=== PATIENT | female | born 1995 | race Hispanic/Latino ===

== ENCOUNTER 2017-01-16 16:56 | Outpatient (CLI) | payer OTHER ==
[~2017-01-16] VITALS: Ht 154.9 cm; Wt 64.0 kg
[2017-01-16 17:08] VITALS: BP 117/64
[2017-01-16] MEDS ORDERED: PRENTAB9 PO (17:56)
== END 2017-01-16 17:53 | disposition home or self-care (01) ==
LOC: M LDO 16:56
PROVIDERS: ATTEND Obstetrics & Gynecology
DX: O36.8130 Decreased fetal movements, third trimester, not applicable or unspecified (principal); Z3A.31 31 weeks gestation of pregnancy

== ENCOUNTER 2017-02-17 21:15 | Outpatient (CLI) | payer OTHER ==
[~2017-02-17 21:15] MED LIST: PRENTAB9 PO
== END 2017-02-17 22:30 | disposition home or self-care (01) ==
LOC: M LDO 21:15
PROVIDERS: ATTEND Obstetrics & Gynecology
DX: O47.03 False labor before 37 completed weeks of gestation, third trimester (principal); Z3A.00 Weeks of gestation of pregnancy not specified

== ENCOUNTER 2017-02-23 09:38 | Inpatient (IN) | payer OTHER ==
[2017-02-23] VITALS (32 sets, daily range): BP systolic 94–140; BP diastolic 51–79
[2017-02-23] MEDS ORDERED: LR 1,000 ML IV SCH ×2 (09:58→09:59)
[2017-02-23] MEDS ORDERED: LACTATED RINGER'S 1000 ML IV STA (09:58)
[2017-02-23] MEDS ORDERED: OXYTOCIN DRIP 30 UNITS in APPROPRIATE DILUENT 1 EA IV SCH (10:00)
[2017-02-23 10:46] LABS: MEAN CORPUSCULAR HEMOGLOBIN 26.5 pg (27.0-33.0); MEAN CORPUSCULAR HGB CONC 33.4 g/dl (32.0-36.5); MEAN CORPUSCULAR VOLUME 79.5 fl (80.0-96.0); RED CELL DISTRIBUTION WIDTH 13.9 % (11.5-14.5); WHITE BLOOD COUNT 12.7 K/mm3 (4.0-10.0)
[2017-02-23] MEDS ORDERED: FENTANYL 2MCG/ML ROPIVACAINE 0.2% IN 0.9% NACL 200ML IVBAG As Ordered ONE (12:02)
[2017-02-23] MEDS ORDERED: diphenhydrAMINE INJ 50MG/ML VIAL (J1200) IV PRN (13:00)
[2017-02-23] MEDS ORDERED: EPIDURAL COMMENT XX SCH (13:00)
[2017-02-23] MEDS ORDERED: EPIDURAL/PCA KEYS XX PRN (13:00)
[2017-02-23] MEDS ORDERED: FENTANYL/ROPIVACAINE/NACL BAG 200 ML EPIDURAL SCH (13:00)
[2017-02-23] MEDS ORDERED: LACTATED RINGER'S 1000 ML IV PRN (13:00)
[2017-02-23] MEDS ORDERED: NALOXONE INJ 0.4 MG/1 ML VIAL (J2310) IV PRN (13:00)
[2017-02-23] MEDS ORDERED: REFRIGERATOR IV KEYS XX PRN (13:00)
[2017-02-23] MEDS ORDERED: ePHEDrine SULFATE 25 MG/5 ML(5MG/ML) SYRINGE IV PRN (13:00)
[2017-02-23] MEDS ORDERED: ONDANSETRON 4MG/2ML VIAL (J2405) IV PRN ×2 (13:00→16:00)
[2017-02-23] MEDS ORDERED: OXYTOCIN 30 UNITS IN 0.9% NaCl 500ML IV BAG (J2590) As Ordered ONE (13:47)
[2017-02-23] MEDS ORDERED: MEASLES,MUMPS,RUBELLA VACCINE INJ (MMR-II) (90707) SC SCH (16:00)
[2017-02-23] MEDS ORDERED: IBUPROFEN 800 MG TAB PO PRN (16:00)
[2017-02-23] MEDS ORDERED: DIBUCAINE 1% OINTMENT 30GM TOP PRN (16:00)
[2017-02-23] MEDS ORDERED: ACETAMINOPHEN 500 MG TAB PO PRN (16:00)
[2017-02-23] MEDS ORDERED: MOM 30ML SUSPENSION UDC PO PRN (16:00)
[2017-02-23] MEDS ORDERED: METHYLERGONOVINE MALEATE 0.2 MG TAB PO PRN (16:00)
[2017-02-23] MEDS ORDERED: RHOGAM 300 MCG (1500 IU) INJ (J2790) IM SCH (16:00)
[2017-02-23] MEDS ORDERED: DOCUSATE SODIUM 100 MG CAP PO PRN (16:00)
[2017-02-23] MEDS ORDERED: PROMETHAZINE 25 MG TAB PO PRN (16:00)
[2017-02-24 06:10] VITALS: BP 126/62
[2017-02-24] MEDS ORDERED: ACET50TA PO (08:03)
[2017-02-24] MEDS ORDERED: IBUP-1114 PO (08:03)
[2017-02-24] MEDS ORDERED: COLA100C3 PO (08:03)
[2017-02-24] MEDS ORDERED: MOM30SS PO (08:03)
[2017-02-24] MEDS ORDERED: NUPE1OIN2 TOP (08:04)
[2017-02-24] MEDS ORDERED: PRENATAL VITAMINS CHEWABLE TABLET PO SCH (09:00)
== END 2017-02-24 18:40 | disposition home or self-care (01) | DRG 775 ==
LOC: M LDO 09:38 → M LDI 09:53 → M OBS 18:11
PROVIDERS: ADMIT Student in an Organized Health Care Education/Training Program; ATTEND Student in an Organized Health Care Education/Training Program
PROC: 10E0XZZ Delivery of Products of Conception, External Approach (ICD-10-PCS; principal; 2017-02-23)
DX: O69.89X0 Labor and delivery complicated by other cord complications, not applicable or unspecified (principal); Z37.0 Single live birth; Z3A.37 37 weeks gestation of pregnancy

== ENCOUNTER → 2018-04-14 | Outpatient (CLI) | payer OTHER | LOC: M LAB 11:22 | DX: Z11.59 Encounter for screening for other viral diseases (principal) | CPT/HCPCS: 36415 ==

== ENCOUNTER 2018-05-16 18:57 | Outpatient (CLI) | payer OTHER ==
[2018-05-16] MEDS: LR 1,000 ML IV (22:35)
== END 2018-05-16 22:12 | disposition home or self-care (01) ==
LOC: M LDO 18:57
DX: O35.1XX1 Maternal care for (suspected) chromosomal abnormality in fetus, fetus 1 (principal); Q05.9 Spina bifida, unspecified
CPT/HCPCS: G0463